=== PATIENT | female | born 1960 | race African-American/Black ===

== ENCOUNTER 2016-11-21 03:07 | Emergency (ER) | payer OTHER ==
[~2016-11-21] VITALS: Ht 165.1 cm; Wt 122.7 kg
[~2016-11-21 03:07] MED LIST: HYDR25TA PO; PENI250T3 PO
[2016-11-21] MEDS ORDERED: VALS320T13 PO (03:12)
[2016-11-21 04:12] VITALS: BP 152/92
== END 2016-11-21 04:36 | disposition home or self-care (01) ==
LOC: EMS 03:07
DX: S46.912A Strain of unspecified muscle, fascia and tendon at shoulder and upper arm level, left arm, initial encounter (principal); M19.012 Primary osteoarthritis, left shoulder; I10 Essential (primary) hypertension; X58.XXXA Exposure to other specified factors, initial encounter; Y93.84 Activity, sleeping; Y92.89 Other specified places as the place of occurrence of the external cause; Y99.8 Other external cause status
CPT/HCPCS: 29240; 99284